=== PATIENT | male | born 1940 | race Caucasian/White ===

== ENCOUNTER 2019-06-23 10:30 | Day surgery (SDC) | payer MEDICARE, OTHER, SELFPAY ==
[2019-06-23 11:00] VITALS: BP 130/98; PULSE 92; RESP 18; TEMP 36.3; O2SAT 95
--- NOTE | 2019-06-23 11:23 | PM.HPUD ---
H&P update H&P Update: DATE OF SURGERY/PROCEDURE: 06/23/19 DATE H&P PERFORMED: 06/22/19 H&P UPDATE INFORMATION: H&P completed within last 30 days and No changes to prior documentation PLANNED PROCEDURE: Operation Date: 06/23/19 12:20 Proposed Procedures p Excision Mass/Lesion/Cyst Upper Torso/He Excision Mass,Lesion,Cyst Upper Torso/Head 87324 10052/ L72.3(Not Applicable) - Luiz Haley MD Full H&P Perinent History: Medical/Surgical History: Medical History (Updated 06/22/19 @ 14:31 by Luiz Haley MD) GERD (gastroesophageal reflux disease) (Acute) History of bladder stone (Acute) surgery for HTN (hypertension) (Acute) Family History: Family History (Updated 06/22/19 @ 13:14 by Ally Oconnor LPN) Denies family history of Diabetes Anesthesia complication Bleeding disorder Cancer Social History: Social History Smoking and tobacco status: never smoked Alcohol intake: never Household members: spouse Marital status: Current occupational status: retired
[2019-06-23] MEDS: sodium chloride 0.9% 1,000 ML 30 ML IV (11:36)
[2019-06-23] MEDS: vancomycin 1,000 MG in sodium chloride 0.9% 250 ML 250 MG IV (11:59)
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
[2019-06-23] MEDS: lidocaine 1% INJ 20 mL SUBCUT (12:51)
[2019-06-23] MEDS: neomycin-poly-bacitracin oint 28 gm 1 APPLIC TOPICAL (13:12)
--- NOTE | 2019-06-23 13:26 | P.OP_ITS ---
Operative Report Post-Operative Note: Date of procedure: 06/23/19 Preop Diagnosis: Mass on back and neck Post-op Findings: 1. Draining sebaceous cyst on the back 2. 2.5 x 2.5 cm sebaceous cyst on the back 3. 2.5 x 2.5 cm mass left posterior neck Procedure Done: 1. Excision of sebaceous cyst x2 on the back 2. Excision of mass on the left posterior neck Specimens removed/disposition: Sebaceous cyst x2 from back and subcutaneous mass from neck Surgeon: Luiz Haley Anesthesia: MAC Estimated blood loss (mL): 15 Condition: stable Disposition: PACU Operative Report: Procedure: The patient was in the operating room and placed in the right lateral position under MAC after IV antibiotic had been administered. The area around the palpable mass on the neck and upper back on the left side was prepped and draped in a sterile manner. 1% lidocaine with 0.5% Marcaine was infiltrated around the 3 palpable lesions. Using a 15 blade elliptical incision was made around the punctum on the sebaceous cyst of the back which measured 2.5 x 2.5 cm. The cyst was dissected free from the surrounding subcutaneous tissue using a 15 blade and specimen sent to pathology. Wound was irrigated saline and subcutaneous tissue approximated using interrupted 3-0 Vicryl suture and skin was closed using running subcuticular 4-0 Monocryl suture and Dermabond. Using a 15 blade 3 cm transverse incision was made on the palpable mass on the left posterior neck which measured 2.5 x 2.5 cm. The mass was dissected free from the surrounding subcutaneous tissue using a 15 blade and specimen sent to pathology. Wound was irrigated saline and subcutaneous tissue approximated using interrupted 3-0 Vicryl suture and skin was closed using running sub cuticular 4-0 Monocryl suture and Dermabond. Using 15 blade and elliptical incision was made around the chronic draining sinus on the back and sebaceous cyst was dissected free from the surrounding s ubcutaneous tissue using electrocautery. Wound was again with saline, hemostasis ensured and skin was approximated using vertical mattress 3-0 Prolene suture and covered with antibiotic cream and sterile dressings. The patient was transferred to recovery room in stable condition. Coding Level of Care Code Acute Lead Embedded Software Engineer for Yonathan Leon
[2019-06-23 13:45] VITALS: BP 107/66; PULSE 80; RESP 18; TEMP 36.6; O2SAT 96
--- NOTE | 2019-06-23 15:22 | ANE.PACU ---
 Inpatient post-anesthesia follow up: Airway intact: Yes Vital signs: Temperature 97.8 F Pulse Rate [Left R adial] 80 Respiratory Rate 18 Blood Pressure [Le ft Arm] 107/66 Pulse Oximetry 96 Oxygen Delivery Me thod Room Air Oxygen Flow Rate Fraction of Inspir ed Oxygen Hydration adequate: No Nausea and vomiting: No Mental status: Baseline
== END 2019-06-23 14:44 | disposition home or self-care (01) ==
PROVIDERS: Family Provider Family Medicine; PCP Family Medicine; Visit Provider Surgery
PROC: (CPT 11403; principal; 2019-06-23 12:10)
DX: L72.3 Sebaceous cyst (principal); D17.0 Benign lipomatous neoplasm of skin and subcutaneous tissue of head, face and neck; I10 Essential (primary) hypertension
CPT/HCPCS: 11403; 11423; 12041; 88304; 88307; J2001; J2250; J2370; J2704; J3010; J3370; J3490; J7030; J7050

== ENCOUNTER 2019-07-09 08:02 | Emergency (ER) | payer MEDICARE, OTHER, SELFPAY ==
[2019-07-09 08:13] VITALS: BP 146/93; PULSE 85; RESP 18; TEMP 36.8; O2SAT 93; BMI 27.7
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
--- NOTE | 2019-07-09 08:37 | PC.NURSE ---
Report received from Zeke Carcamo RN
--- NOTE | 2019-07-09 08:58 | ECG_ITS ---
Measurements Intervals [place] Rate: 83 P: 9 TX: 222 QRS: -23 QRSD: 133 T: 2 QT: 349 QTc: 411 SINUS RHYTHM WITH FIRST DEGREE AV BLOCK BORDERLINE LEFT AXIS DEVIATION [QRS AXIS < -20] INTRAVENTRICULAR CONDUCTION DELAY [130+ ms QRS DURATION] No previous ECG available for comparison Electronically Signed On 07-09-2019 15:33:57 RENTAL COUNTER CLERK by Jenn Ayon M.D. [email or web address]
--- NOTE | 2019-07-09 08:58 | XR_ITS ---
WS: [id number] PORTABLE CHEST HISTORY: dyspnea COMPARISON: 06/18/2018 Slight elevation of the RIGHT hemidiaphragm is unchanged. Increasing scattered opacifications in the mid and lower LEFT lung. RIGHT lung remains clear. No pleural effusion or pneumothorax. Cardiac size: Mildly enlarged cardiac silhouette. Mediastinum/Aorta: Mild atherosclerosis aorta. Resection of the distal clavicles. XR/XR chest 1V portable [id number] IMPRESSION: New opacifications and interstitial thickening in the mid and lower LEFT lung f rom early pneumonitis.
[2019-07-09 09:11] VITALS: BP 112/80; PULSE 82; RESP 18; O2SAT 93
[2019-07-09] MEDS: sodium chloride 0.9% 1,000 ML 999 ML IV (09:13)
[2019-07-09 09:16] LABS: Basophils % 0.1 %; Eosinophils # 0.3 10^3/uL (0.0-0.8); Eosinophils % 3.9 %; Hematocrit 42.9 % (42.0-52.0); Hemoglobin 14.6 g/dL (11.7-16.6); Lymphocytes # 2.2 10^3/uL (0.8-4.8); Lymphocytes % 30.9 %; Mean Corpuscular Hemoglobin 28.8 pg (28.0-34.0); Mean Corpuscular Volume 84.6 fL (80-94); Mean Platelet Volume 9.8 fL (7.4-10.4); Monocytes # 0.6 10^3/uL (0.2-0.9); Monocytes % 8.3 %; Neutrophils # 4.1 10^3/uL (1.8-7.7); Neutrophils % 56.5 %; Nucleated Red Blood Cells % 0 %; Platelet Count 211 10^3/cmm (130-400); Red Blood Count 5.07 10^6/uL (4.1-5.3); Red Cell Distribution Width 14.1 % (12.1-15.1); White Blood Count 7.3 10^3/uL (4.0-10.0)
[2019-07-09 09:31] LABS: Alanine Aminotransferase 27 U/L (0-41); Albumin Level 4.6 g/dL (3.5-5.2); Alkaline Phosphatase 50 IU/L (40-130); Anion Gap 15.1 (5-19); Aspartate Amino Transferase 24 U/L (0-40); Blood Urea Nitrogen 19 mg/dL (8-23); Calcium 9.9 mg/dL (8.5-10.5); Carbon Dioxide 28 mmol/L (22-29); Chloride 99 mmol/L (98-107); Creatinine Clr Calc Pharmacy 95.6018; Glucose 118 mg/dL (74-106); Potassium 4.1 mmol/L (3.5-5.1); Sodium 138 mmol/L (136-145); Total Protein 6.6 g/dL (6.6-8.7)
[2019-07-09 09:33] LABS: Troponin(5th) Baseline 34 ng/mL (0-15)
[2019-07-09 09:34] VITALS: BP 132/85; PULSE 76; RESP 18; O2SAT 94
--- NOTE | 2019-07-09 09:34 | PC.NURSE ---
Xray at bedside
--- NOTE | 2019-07-09 09:41 | PC.NURSE ---
Pt ambulated to BR to give urine sample.
[2019-07-09 10:35] VITALS: BP 106/79; PULSE 78; RESP 17; O2SAT 92
[2019-07-09] MEDS: levoFLOXacin 750 mg Tablet PO (10:36)
[2019-07-09 11:31] LABS: Troponin 5 2HR 30.31 ng/mL (0-15)
[2019-07-09 11:38] LABS: Troponin 5 2HR Delta -3.69 ABS# (0-10)
[2019-07-09 11:45] VITALS: BP 100/80; PULSE 85; RESP 17; O2SAT 91
[2019-07-09 11:54] VITALS: BP 100/80; PULSE 94; RESP 15; O2SAT 92
--- NOTE | 2019-07-09 14:58 | ECG_ITS ---
Measurements Intervals [place] Rate: 80 P: 0 OK: 223 QRS: -17 QRSD: 112 T: 8 QT: 369 QTc: 426 SINUS RHYTHM WITH FIRST DEGREE AV BLOCK INCOMPLETE RIGHT BUNDLE BRANCH BLOCK [90+ ms QRS DURATION, TERMINAL R IN V1/V2, 40+ ms S IN I/aVL/V4/V5/V6] No previous ECG available for comparison Electronically Signed On 07-09-2019 15:37:44 RN ICU by Jenn Ayon M.D. [email or web address]
--- NOTE | 2019-07-09 15:57 | DCPLANNER ---
distribution operations manager was asked to schedule an echo cardiogram for patient. distribution operations manager faxed order to centralized scheduling will call for appointment information.
--- NOTE | 2019-07-14 14:30 | DCPLANNER ---
Patient has an echo scheduled for 07.26.19 at 8:45. Centralized scheduling will call patient with appointment information.
--- NOTE | 2019-08-17 14:24 | DCPLANNER ---
Patient did attend appointment scheduled for 07.26.19 for an echo.
== END 2019-07-09 12:04 | disposition home or self-care (01) ==
PROVIDERS: Emergency Provider Family Medicine; Family Provider Family Medicine; PCP Family Medicine
DX: R07.89 Other chest pain (principal); I35.0 Nonrheumatic aortic (valve) stenosis; J18.9 Pneumonia, unspecified organism; Z79.82 Long term (current) use of aspirin; I10 Essential (primary) hypertension; K21.9 Gastro-esophageal reflux disease without esophagitis
CPT/HCPCS: 36415; 71045; 80053; 84484; 85025; 93005; 96360; 99283; J7030

== ENCOUNTER 2019-07-26 08:34 | Outpatient (CLI) | payer MEDICARE, OTHER, SELFPAY ==
--- NOTE | 2019-07-26 08:43 | USCV_ITS ---
Tomer Donaldson Age: 79 Gender: M : 1940 Exam Date: 07/26/2019 08:59 Ordering Phys: Pablito Correa MD Technologist: Eda Hernandez Exam Location: [facility] – [place] Indication: CHANGE IN MURMUR BP: 129 / 80 HR: 77 Rhythm: Sinus Technical Quality: Adequate MEASUREMENTS (Male / Female) Normal Values 2D ECHO LV Diastolic Diameter PLAX 4.3 cm 4.2 - 5.9 / 3.9 - 5.3 cm LV Systolic Diameter PLAX 2.4 cm LV Chamber Size 3.7 cm IVS Diastolic Thickness 1.6 cm 0.6 - 1.0 / 0.6 - 0.9 cm IVS Systolic Thickness 2.4 cm LVPW Diastolic Thickness 1.6 cm 0.6 - 1.0 / 0.6 - 0.9 cm LVPW Systolic Thickness 2.0 cm RV Chamber Size 2.7 cm LVOT Diameter 2.1 cm LV Ejection Fraction 2D Teich 76.4 % LV Ejection Fraction MOD 2C 73.6 % LV Ejection Fraction 2C AL 74.4 % LA Diameter 4.0 cm LA Width 3.3 cm LA Height 3.4 cm RA Width 3.5 cm RA Height 3.4 cm Aorta at Sinotubular Diameter 3.4 cm M-MODE LV Diastolic Diameter MM 5.2 cm 4.2 - 5.9 / 3.9 - 5.3 cm LV Systolic Diameter MM 2.8 cm LV Ejection Fraction MM Teich 76.6 % IVS Diastolic Thickness MM 1.2 cm 0.6 - 1.0 / 0.6 - 0.9 cm IVS Systolic Thickness MM 1.7 cm LVPW Diastolic Thickness MM 1.2 cm 0.6 - 1.0 / 0.6 - 0.9 cm LVPW Systolic Thickness MM 2.4 cm RV Diastolic Diameter MM 1.9 cm Aortic Annulus Diameter 3.7 cm LA Ao Ratio MM 1.1 MV E Point Septal Separation 0.6 cm DOPPLER AV Peak Velocity 353.0 cm/s LVOT Peak Velocity 94.0 cm/s AV Area Cont Eq vti 0.7 cm squared AV Area Cont Eq pk 0.9 cm squared MV Peak Velocity 108.0 cm/s MV Area PHT 5.6 cm squared Mitral E to A Ratio 0.7 MV E' Velocity 7.0 cm/s Mitral E to MV E' Ratio 10.8 Mitral E to LV E' Lateral Ratio 9.9 Mitral E to LV E' Septal Ratio 11.8 TR Peak Velocity 253.7 cm/s TR Peak Gradient 25.8 mmHg TR Mean Velocity 197.5 cm/s TR Mean Gradient 16.6 mmHg TR Velocity Time Integral 67.5 cm TV Peak E Velocity 54.0 cm/s PV Peak Velocity 57.0 cm/s RV Acceleration Time 0.1 s RV Ejection Time 0.3 s RV AcT/ET 0.3 FINDINGS Left Ventricle Moderate left ventricular hypertrophy. Normal left ventricular size and systolic function, EF 65 %. No regional wall motion abnormalities. Grade I/IV diastolic dysfunction (abnormal relaxation filling pattern), normal to mildly elevated filling pressures. Right Ventricle Normal right ventricular size and systolic function. Right Atrium Normal right atrial size. Left Atrium Mildly increased left atrial size. Mitral Valve Moderate-severe mitral valve regurgitation. Eccentric jet, directed anteriorly. Moderate prolapse of the posterior mitral leaflet Aortic Valve Moderate aortic valve calcification. Gdoh-ha-xmqoanka aortic valve regurgitation. Severe aortic valve stenosis, mean gradient 19.4 mmHg, DEVEN 0.75 cm squared. Peak velocity of 3.53 m/s with a peak gradient of 15 mmHg Tricuspid Valve Morphology could not be delineated well.mild tricuspid valve regurgitation. Pulmonic Valve Thickened pulmonic valve. Mild pulmonary valve regurgitation. Estimated pulmonary artery peak systolic pressure 26 mmHg Pericardium No pericardial effusion. Aorta Normal aortic annulus size. CONCLUSIONS 1. Possibly severe low gradient aortic valve stenosis. 2. Moderately severe eccentric mitral regurgitation with moderate prolapse of the posterior mitral leaflet 3. Mild to moderate aortic regurgitation 4. Moderate concentric left ventricular hypertrophy with normal ejection fraction of 65%. 5. Features of grade 1 left ventricular diastolic dysfunction 6. Estimated pulmonary artery peak systolic pressure of 26 mmHg Technically somewhat difficult study Consider ELIZABETH to better evaluate the aortic and mitral valves, if clinically indicated. Comparison with the previous study is difficult because of the difference in the technical quality. Dr Jenn Ayon MD FACC (Electronically Signed) Final Date: 26 July 2019 20:52 S
== END 2019-07-26 08:35 | disposition home or self-care (01) ==
LOC: RAD 08:41
PROVIDERS: Family Provider Family Medicine; PCP Family Medicine; Visit Provider Family Medicine
DX: R01.1 Cardiac murmur, unspecified (principal); I34.0 Nonrheumatic mitral (valve) insufficiency; I35.1 Nonrheumatic aortic (valve) insufficiency; I51.7 Cardiomegaly
CPT/HCPCS: 93306

== ENCOUNTER → 2019-07-28 08:01 | Outpatient (BNVA) | payer MEDICARE, OTHER, SELFPAY | PROVIDERS: Family Provider Family Medicine; PCP Family Medicine; Visit Provider Urology | DX: R33.9 Retention of urine, unspecified (principal); E29.1 Testicular hypofunction; N30.20 Other chronic cystitis without hematuria; N40.1 Benign prostatic hyperplasia with lower urinary tract symptoms; N20.0 Calculus of kidney | CPT/HCPCS: 81001; 87077; 87086; 87186 ==

== ENCOUNTER 2019-08-24 10:43 | Day surgery (SDC) | payer MEDICARE, OTHER, SELFPAY ==
[2019-08-24 11:21] VITALS: BP 114/78; PULSE 84; RESP 18; TEMP 36.8; O2SAT 96; BMI 28.2
--- NOTE | 2019-08-24 11:35 | ANES.PREANE2 ---
Pre-Anesthetic Assessment Pre-Anesthetic Assessment: Height/Weight: Height 1.85 m Weight 97.069 kg Temp Pulse Resp BP Pulse Ox 98.3 F 84 18 114/78 96 08/24/19 11:21 08/24/19 11:21 08/24/19 11:21 08/24/19 11:21 08/24/19 11:21 Preop Diagnosis: Mass on back and neck Proposed Procedure: Operation Date: 08/24/19 12:00 Proposed Procedures p ELIZABETH (Transesophageal Echocardiogram)(Not Applicable) - Latanya Jones MD Familial anesthetic complications: PONV Was Beta Jewel taken within 24 hours: N/A Last intake: NPO > 8 hrs (sips with meds - lorene c, methenamine, omperazole) Social: Social History: No alcohol and No tobacco Exam: Pre-Anes Outpt Exam: alert, oriented x 3, clear to auscultation bilaterally and regular rate & rhythm Airway: Cervical ROM: WNL MP: 2 Dentition: Chipped Additional comments: smiley Pulmonary: Pulmonary: SOB Comments: Hx of pneumothoraces due to nitrofurantion CV/HEM: CV/HEM: Angina (Stable), HTN and Murmur Comments: aortic stenosis (severe), mitral regurge (mod - severe) was able to walk 0.5 mile 3 months ago, now will become short of breath with 2 flights : : None reported Hepatic: Hepatic: None reported GI: GI: GERD Metabolic: Metabolic: None reported Musc/skel: Musc/skel: None reported Neuropsych: Neuropsych: None reported Anesthetic Plan: ASA status: 3 Anesthesia: MAC Risk of > 500 ml blood loss (7ml/kg in children): No PFSH Anesthesia PFSH: Social History Smoking and tobacco status: never smoked Alcohol intake: never Household members: spouse Marital status: Current occupational status: retired History of recent travel: No Data Anesthesia Cardiac Studies: No Data to Display
--- NOTE | 2019-08-24 12:00 | USCV_ITS ---
Tomer Donaldson Age: 79 Gender: M : 1940 Exam Date: 08/24/2019 12:12 Ordering Phys: Latanya Jones MD ([email or web address]) Technologist: Sharan Arenas Exam Location: [facility] [place] Indication: MVP BP: / HR: Rhythm: Sinus Technical Quality: Good MEASUREMENTS (Male / Female) Normal Values Medications Patient given IV sedation by anesthesia service, for details please refer to the anesthesia report. Complications None Proc. Components Images obtained at mid esophageal and transgastric levels. FINDINGS Left Ventricle Normal left ventricular cavity size. Moderate concentric left ventricular hypertrophy. Normal left ventricular systolic function. Left ventricular ejection fraction is estimated at 65 %. No regional wall motion abnormalities. Right Ventricle Normal right ventricular size and systolic function. Right Atrium Normal right atrial size. Left Atrium Mildly increased left atrial size. LA Appendage Normal left atrial appendage. Normal flow velocities in the left atrial appendage. No thrombus visualized in the left atrial appendage. IA Septum Normal interatrial septum. No patent foramen ovale or an atrial septal defect based on color doppler or agitated saline (bubble) study. Mitral Valve Thickened and myxomatus mitral valve. 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 Moderate prolapse of P1 and P2 (P2>P1) scallops of posterior mitral valve leafleft. Moderate to severe eccentric anteriorly directed mitral valve regurgitation (ERO 48 mm2, RVol 57 ml). This may be underestimated given coanda effect. Aortic Valve Severely thickened and calcified trileaflet aortic valve. Moderate to severe aortic valve stenosis, peak velcity of 3.3 m/sec, peak gradient 42 mm Hg, mean gradient 19 mmHg, DEVEN 1.2 cm squared (LVOT-2.2 cm). Dimensionless valve index of 0.25. Stroke volume index of 30 ml/m2. Itse-cl-ogyxrhfm eccentric aortic valve regurgitation. Tricuspid Valve Structurally normal tricuspid valve. No tricuspid valve stenosis. Yzay-ru-niiwjiiq tricuspid valve regurgitation. Pulmonic Valve Structurally normal pulmonic valve. No pulmonary valve stenosis. Trace pulmonary valve regurgitation. Pericardium No pericardial effusion. Aorta Normal size aortic root and proximal ascending aorta. No aortic dilation, aneurysm or dissection. Grade 3 atheroma noted in proximal descending aorta and aortic arch. CONCLUSIONS 1. Normal left ventricular cavity size and systolic function. Moderate concentric left ventricular hypertrophy. Left ventricular ejection fraction is estimated at 65 %. No regional wall motion abnormalities. 2. Mildly increased left atrial size. 3. Moderate prolapse of P1 and P2 (P2>P1) scallops of posterior mitral valve leafleft. Moderate to severe eccentric anteriorly directed mitral valve regurgitation. 4. Moderate to severe aortic valve stenosis, peak velcity of 3.3 m/sec, peak gradient 42 mm Hg, mean gradient 19 mmHg, DEVEN 1.2 cm squared. Dimensionless valve index of 0.25. Synh-if-ofnluccs eccentric aortic valve regurgitation. 5. Iagw-ti-xpethzfg tricuspid valve regurgitation. 6. Grade 3 atheroma noted in proximal descending aorta and aortic arch. Latanya Jones MD (Electronically Signed) Final Date: 25 August 2019 20:38 S
[2019-08-24 13:00] VITALS: BP 114/81; PULSE 77; RESP 16; O2SAT 98
[2019-08-24 13:15] VITALS: BP 116/88; PULSE 77; RESP 18; TEMP 36.9; O2SAT 95
[2019-08-24 13:29] VITALS: BP 124/78; PULSE 74; RESP 18; O2SAT 96
== END 2019-08-24 14:05 | disposition home or self-care (01) ==
PROVIDERS: Family Provider Family Medicine; PCP Family Medicine; Visit Provider Internal Medicine Cardiovascular Disease
DX: N13.8 Other obstructive and reflux uropathy (principal); I07.1 Rheumatic tricuspid insufficiency; I10 Essential (primary) hypertension; I35.0 Nonrheumatic aortic (valve) stenosis; I34.0 Nonrheumatic mitral (valve) insufficiency; K21.9 Gastro-esophageal reflux disease without esophagitis; N40.1 Benign prostatic hyperplasia with lower urinary tract symptoms
CPT/HCPCS: 93312; 93320; 93325; J2001; J2704; J7030

== ENCOUNTER 2019-09-09 08:00 | Day surgery (SDC) | payer MEDICARE, OTHER, SELFPAY | END 2019-09-09 09:00 | disposition home or self-care (01) | LOC: CCL 02-01 14:13 | PROVIDERS: PCP Family Medicine; Visit Provider Internal Medicine Cardiovascular Disease | DX: I08.0 Rheumatic disorders of both mitral and aortic valves (principal) ==

== ENCOUNTER 2019-09-09 10:59 | Observation (INO) | payer MEDICARE, OTHER, SELFPAY ==
[2019-09-09] VITALS (26 sets, daily range): BP systolic 115–151; BP diastolic 74–99; PULSE 75–100; RESP 13–24; TEMP 36.7–36.8; O2SAT 91–100; BMI 28.2
--- NOTE | 2019-09-09 07:15 | XACV_ITS ---
Ht: 185 cm Wt: 97 kg BSA: 2.25 m2 Gender: Male : 1940 Any Known Allergies: Penicillins Exam Priority: Routine Procedure(s): Procedure Description: Diagnostic procedure Procedure Description: PCI procedure Procedure Description: Left Heart Catheterization Procedure Description: Right Heart Catheterization Procedure Description: Left ventriculography Procedure Description: Cardiac Output Procedure Description: O2 saturation Procedure Description: Drug Eluting Coronary Stent Procedure Description: PTCA Diagnostic Cath Status: Elective Diagnostic Findings LM has 0% stenosis. CX has 0% stenosis. RCA has 0% stenosis. Proximal Left Anterior Descending Coronary Artery: Severe 95% stenosis, JEFFRY: 2 flow. Distal Left Anterior Descending Coronary Artery: Severe 90% stenosis, JEFFRY: 2 flow. Coronary angiography shows left dominance. Interventional Findings Proximal Left Anterior Descending Coronary Artery: 95% stenosis treated with MDT R VANDA 4.0X12 SUSAN and MDT NC EUPHORA RX [id number] BALLOON. 0% residual stenosis, JEFFRY: 3 flow. Distal Left Anterior Descending Coronary Artery: 90% stenosis treated with AB MINI TREK 2.00X25 RX BALLOON and ARUNA [place] VANDA 2.5X12 SUSAN. 0% residual stenosis, JEFFRY: 3 flow. Conclusions There is severe coronary artery disease with one vessel disease. The anterobasal and anterolateral nino are hypokinetic. All other visualized nino normal. Normal left ventricular systolic function. Ejection fraction of 65%. Proximal Left Anterior Descending Coronary Artery was treated with Drug Eluting Stent and Balloon. Distal Left Anterior Descending Coronary Artery was treated with Balloon and Drug Eluting Stent. Underwent left heart catheterization for worsening of shortness of breath and for moderate aortic and mitral valve insufficiency. As shortness of breath was unusual than the aortic and mitral valve pathology patient was referred for left heart catheterization. Patient was found to have tight proximal and distal LAD lesion since patient is not going for a major surgery and would like to hold on it for a few months it was treated with drug-eluting stents. Recommendations 1-Return to inpatient for close monitoring and routine cath care2-Risk factor modification for secondary prevention3-Statin and aspirin 81 mg life-long, if tolerated4-Continue Plavix 75mg p.o. daily for at least one year. We will assess at the end of one year again to continue if further or not5-Continue optimal medical management6-Follow up with Dr. Jones in four weeks and your primary care in 10 days. Diagnostic RX Recommendation: PCI w/o planned CABG Ventriculography Ejection Fraction: 65.0 % Pressures Phase:Rest AO : 96 mmHg / 61 mmHg ( 72 mmHg ) @ 4:50:00 AM 109 mmHg / 21 mmHg ( 52 mmHg ) @ 5:13:00 AM 88 mmHg / 53 mmHg ( 71 mmHg ) @ 5:13:00 AM LV : 159 mmHg / -11 mmHg / @ 5:11:00 AM 166 mmHg / -5 mmHg / @ 5:11:00 AM 146 mmHg / -30 mmHg / @ 5:13:00 AM RV : 28 mmHg / -2 mmHg / @ 4:38:00 AM PA : 31 mmHg / 15 mmHg ( 20 mmHg ) @ 4:34:00 AM RA : a wave = v wave = mean = 4 mmHg @ 4:40:00 AM O2 Content Phase:Rest PA : O2 Content O2: 71.8 % @ 4:50:00 AM Saturations Phase:Rest AO : 90 % @ 5:11:00 AM RA : 73 % @ 5:13:00 AM RV : 72 % @ 5:13:00 AM PA : 72 % @ 4:50:00 AM Cardiac Output Phase:Rest Latoya : 7 l/min @ 4:50:00 AM Latoya Cardiac Index: 3 L/min/m2 @ 4:50:00 AM Clinical Evaluation EBL: 5mL-10mL Procedural Details Procedure Consent Obtained. Admit Source: Out Patient. Pre-Procedure Time Out. Identified patient by full name and date of as verbalized by the patient/guarantor. Does the consent match the physician's order: Yes. Accurate & Complete Informed Consent: Yes. Inpatient/Outpatient History & Physical on Chart: Yes. If H&P is completed, is and addenduem needed: N/A; If yes, is the addendum complete: N/A. Visualize and Verify Site with Patient/Guarantor: N/A. Relevant Radiology Images available: N/A. Pre-op teaching completed and patient verbalized understanding. The risks, benefits, and alternatives of sedation and/or procedure were discussed by physician. The patient agrees to continue. Procedure started. Correct patient, site and procedure confirmed by cath team. PERRLA. Strong, equal hand headhunter bilaterally. Lungs clear x 5 lobes. IV Site on Arrival: 20 gauge in the left wrist. Pre Procedural Pulses: bilateral dorsalis pedis was 3+. Pre Procedural Pulses: bilateral posterior tibial was 3+. Pre Procedural Pulses: bilateral radial was 3+. Oxygen started at 2liters/min via nasal canula. bilateral groins was prepped with chloroprep then draped in the usual sterile fashion. right radial was prepped with chloroprep then draped in the usual sterile fashion. Physician notified. Baseline sample Acquired. HR: 105 BPM. Physician arrived. Physician scrubbed in. Immediate Pre-Procedure Time Out. Correct Patient: Yes; Correct Procedure: Yes; Correct Site: Yes; Correct Patient Position: Yes; Correct Supplies: Yes; Dried Flammable Prep: Yes; Blood Products Available: N/A;. wire going throught the brachial access guide. Lidocaine 1% infiltrated to the right brachial. right brachial was prepped with chloroprep then draped in the usual sterile fashion. IV wire coming out. Arterial access obtained. [place] MON catheter inserted. Baseline sample Acquired. HR: 84 BPM. oxygen is off patient at this time. Oximetry samples were obtained. Normal venous range: 60-85%. Normal arterial range: 95-100%. Pressure measurements obtained. [place] out. Lidocaine 1% infiltrated to the right radial. A 5 german TIG catheter in over wire. 2LPM NC placed back on patient. Catheter out. Family called and updated. A 5 german Deacon catheter in over wire. Multiple views taken of left coronary artery. Catheter redirected to the RCA. Dr. Jones notified per Dr. Romo. Dr. Jones arrived and consulted with Dr. Romo at this time. Inventory is [place] XT .014 190cm Str. Guidewire. A 5 german Angled Pig catheter in over wire. EDP Sample taken: LV 159/-12,5; HR: 104 BPM; SpO2: 98%. LV gram performed in LIRA @ 10 mL/second for a total of 30 mL. EDP Sample taken: LV 146/-31,-10; HR: 102 BPM; SpO2: 98%. Pullback taken: LV Off; AO Off; Mean: , Peak to Peak: , SEP: ; HR: 109 BPM; SpO2: 98%. 6 german XB 3.5 guide catheter was inserted over the wire. [employer] guidewire was advanced through the guide catheter to lesion in the distal LAD. Inflation number : 1 A AB MINI TREK 2.00X25 RX BALLOON was prepped and advanced across the Dist LAD , then inflated to 14 AUDI for 0:09 seconds. Balloon out. Inflation Number : 2 A MDT R VANDA 2.5X12 SUSAN -Lot Number# [id number] exp:05-18-2021 was prepped and advanced across the Dist LAD. The stent was deployed at 20 AUDI for 0:22 seconds. Stent balloon out over wire. Results checked. Inflation Number : 1 A MDT R VANDA 4.0X12 SUSAN -Lot Number# [id number] exp: 05-14-2021 was prepped and advanced across the Prox LAD. The stent was deployed at 18 AUDI for 0:16 seconds. Inflation number : 2 A MDT NC EUPHORA RX [id number] BALLOON was prepped and advanced across the Prox LAD , then inflated to 14 AUDI for 0:21 seconds. Inflation number: 3 The MDT NC EUPHORA RX 4.18M29PE BALLOON was reinflated across the Prox LAD, to 12 AUDI for 0:13 seconds. Inflation number: 4 The MDT NC EUPHORA RX 4.28P93QM BALLOON was reinflated across the Prox LAD, to 14 AUDI for 0:11 seconds. ACT drawn. Results 207 seconds. Therapeutic limits - pre-heparin administration 90-150 seconds and monitoring heparin during a vascular procedure >250 seconds. checking results. Wire out. TR band placed. Hemostasis obtained. Brachial Sheath(s) sutured into position with 2-0 silk and sterile 4x4's and Op-site applied over the site. No oozing or signs and symptoms of hematoma noted. Post Procedure: Pulses reassessed and unchanged. PERRLA. Strong, equal hand headhunter bilaterally. No VTE prophylaxis required. A Suture was successful obtaining hemostatsis at the Right Brachial artery insertion site. A TR Band was successful obtaining hemostatsis at the Right Radial artery insertion site. Contrast type used: Omnipaque 300 mgI/mL, 500 mL bottle. Contrast Material : Omnipaque 357 ml. Complications: NONE. Estimated blood loss: 5mL-10mL. Medication's Wasted: Lidocaine 1% = 17 mg. Medication's Wasted: Nitro = 49.6 mg. Medication's Wasted: Other = Fentynol 50 mg. Total IV fluids: 117 mL. Post-op diagnosis: sigle vessel CAD. [facility] Clinical Fraility Score: 4: Vulnerable. 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 Chest Pain Symptom Assessment: Typical Angina Symptoms/valvular disease. Cardiovascular Instability: No,. PCI Indication: New Onset Angina. Procedure completed. Patient transferred by wheelchair to 1st floor. Vital chart was stopped. Site: Right Brachial artery Sheath Size: 6 Fr Hemostasis Method: Suture Hemostasis Success: Successful Site: Right Radial artery Sheath Size: 6 Fr Hemostasis Method: TR Band Hemostasis Success: Successful Procedure Medications Start: 9:27 AM Stop: 9:27 AM Medication: Versed Amount: 1 mg Route: I.V. Start: 9:46 AM Stop: 9:46 AM Medication: Versed Amount: 1 mg Route: I.V. Start: 9:46 AM Stop: 9:46 AM Medication: Fentanyl Amount: 50 mcg Route: I.V. Start: 9:46 AM Stop: 9:46 AM Medication: Fentanyl Amount: 50 mcg Route: I.V. Start: 9:48 AM Stop: 9:48 AM Medication: Nitrogylcerin Amount: 200 mcg Route: I.A. Start: 9:51 AM Stop: 9:51 AM Medication: Heparin Amount: 5000 units Route: I.V. Start: 10:15 AM Stop: 10:15 AM Medication: Heparin Amount: 5000 units Route: I.V. Start: 10:21 AM Stop: 10:21 AM Medication: Aggrastat 12.5 mg/250 mL Amount: 49 ml Route: I.V. bolus Start: 10:21 AM Stop: 10:21 AM Medication: Versed Amount: 1 mg Route: I.V. Start: 10:26 AM Stop: 10:26 AM Medication: Aggrastat 12.5 mg/250 mL Amount: 17.6 ml/hr Route: I.V. drip Start: 10:31 AM Stop: 10:31 AM Medication: Versed Amount: 1 mg Route: I.V. Start: 10:39 AM Stop: 10:39 AM Medication: Versed Amount: 1 mg Route: I.V. Start: 10:39 AM Stop: 10:39 AM Medication: Fentanyl Amount: 50 mcg Route: I.V. Start: 10:42 AM Stop: 10:42 AM Medication: Nitrogylcerin Amount: 200 mcg Route: I.C. Start: 10:43 AM Stop: 10:43 AM Medication: Heparin Amount: 2000 units Route: I.V. Start: 10:51 AM Stop: 10:51 AM Medication: Plavix Amount: 600 mg Route: P.O. I, the attending physician, have reviewed and verified all procedure medications. Yes, all medications given per verbal order History/Risk Factors Hypertension: Yes Dyslipidemia: No Peripheral Arterial Disease (PAD): No Myocardial Infarction (HI): No Obesity: No Renal Disease: No Tobacco Use: Never Prior Interventions PCI: No CABG: No Valve Surgery: No Report Signatures Finalized by:Tia Romo MD on 09/19/2019 8:58:30 PM
[2019-09-09] MEDS: diphenhydrAMINE 50 mg Capsule PO (08:21)
[2019-09-09 08:25] LABS: Basophils % 0.2 %; Eosinophils # 0.7 10^3/uL (0.0-0.8); Eosinophils % 7.8 %; Hematocrit 47.7 % (42.0-52.0); Lymphocytes % 35.9 %; Mean Corpuscular HGB Conc 33.5 g/dL (30.0-36.0); Mean Corpuscular Volume 89.5 fL (80-94); Mean Platelet Volume 9.9 fL (7.4-10.4); Monocytes # 0.8 10^3/uL (0.2-0.9); Monocytes % 9.5 %; Neutrophils # 3.9 10^3/uL (1.8-7.7); Neutrophils % 46.1 %; Nucleated Red Blood Cells % 0 %; Platelet Count 240 10^3/cmm (130-400); Red Blood Count 5.33 10^6/uL (4.1-5.3); Red Cell Distribution Width 14.2 % (12.1-15.1); White Blood Count 8.5 10^3/uL (4.0-10.0)
[2019-09-09 08:33] LABS: Blood Urea Nitrogen 15 mg/dL (8-23); Calcium 9.8 mg/dL (8.5-10.5); Carbon Dioxide 28 mmol/L (22-29); Chloride 101 mmol/L (98-107); Glucose 127 mg/dL (65-115); Osmolality Calculated 290 mOsm/kg (285-295); Sodium 141 mmol/L (136-145)
--- NOTE | 2019-09-09 08:35 | SUR.PREOP ---
Patient ready to go to cath. notified. 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 Awaiting his arrival before going to lab.
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
--- NOTE | 2019-09-09 19:08 | PC.NURSE ---
patients family here at 19:05, transport picking him up, iv and education completed prior to shift change. patient wheeled to exit via wheelchair to go home with family in their personal vehicle.
== END 2019-09-09 19:10 | disposition home or self-care (01) ==
LOC: CSU 11:00
PROVIDERS: Admitting Provider Internal Medicine Cardiovascular Disease; Family Provider Family Medicine; PCP Family Medicine; Visit Provider Internal Medicine Cardiovascular Disease
DX: I20.0 Unstable angina (principal); I35.0 Nonrheumatic aortic (valve) stenosis; I34.0 Nonrheumatic mitral (valve) insufficiency; N40.1 Benign prostatic hyperplasia with lower urinary tract symptoms; N13.8 Other obstructive and reflux uropathy; K21.9 Gastro-esophageal reflux disease without esophagitis; I10 Essential (primary) hypertension; Z82.49 Family history of ischemic heart disease and other diseases of the circulatory system
CPT/HCPCS: 12345; 36415; 80048; 85025; 85347; 93453; C1725; C1751; C1769; C1874; C1887; C1894; C9600; G0378; J1644; J2001; J2250; J3010; J3246; J3490; J7030; Q0163; Q9967

== ENCOUNTER → 2019-09-16 11:17 | Outpatient (BNVA) | payer MEDICARE, OTHER, SELFPAY | PROVIDERS: Family Provider Family Medicine; PCP Family Medicine; Visit Provider Nurse Practitioner Family | DX: I25.10 Atherosclerotic heart disease of native coronary artery without angina pectoris (principal); I34.0 Nonrheumatic mitral (valve) insufficiency; I25.110 Atherosclerotic heart disease of native coronary artery with unstable angina pectoris | CPT/HCPCS: 80048 ==

== ENCOUNTER → 2020-04-13 11:38 | Outpatient (BNVA) | payer MEDICARE, OTHER, SELFPAY | PROVIDERS: Family Provider Family Medicine; PCP Family Medicine; Visit Provider Internal Medicine | DX: N17.0 Acute kidney failure with tubular necrosis (principal); Z79.899 Other long term (current) drug therapy | CPT/HCPCS: 80053; 80069; 81003; 82570; 84156; 85025; 87077; 87086; 87184 ==

== ENCOUNTER → 2020-05-24 10:28 | Outpatient (BNVA) | payer MEDICARE, OTHER, SELFPAY | PROVIDERS: Family Provider Family Medicine; PCP Family Medicine; Visit Provider Urology | DX: R33.9 Retention of urine, unspecified (principal); N30.20 Other chronic cystitis without hematuria; N39.0 Urinary tract infection, site not specified; E29.1 Testicular hypofunction | CPT/HCPCS: 81003; 87077; 87086; 87184 ==

== ENCOUNTER → 2020-09-20 10:27 | Outpatient (BNVA) | payer MEDICARE, OTHER, SELFPAY | PROVIDERS: Family Provider Family Medicine; PCP Family Medicine; Visit Provider Internal Medicine | DX: N17.9 Acute kidney failure, unspecified (principal) | CPT/HCPCS: 80069; 81003; 82043; 85025; 87077; 87086; 87184 ==

== ENCOUNTER → 2020-10-03 13:41 | Outpatient (BNVA) | payer MEDICARE, OTHER, SELFPAY | PROVIDERS: Family Provider Family Medicine; PCP Family Medicine; Visit Provider Urology | DX: N30.20 Other chronic cystitis without hematuria (principal) | CPT/HCPCS: 87077; 87086; 87184 ==

== ENCOUNTER → 2020-10-23 08:51 | Outpatient (BNVA) | payer MEDICARE, OTHER, SELFPAY | PROVIDERS: Family Provider Family Medicine; PCP Family Medicine; Visit Provider Urology | DX: R79.89 Other specified abnormal findings of blood chemistry (principal); N13.8 Other obstructive and reflux uropathy; N40.1 Benign prostatic hyperplasia with lower urinary tract symptoms; N30.20 Other chronic cystitis without hematuria; R33.9 Retention of urine, unspecified; E29.1 Testicular hypofunction | CPT/HCPCS: 81003; 84403 ==

== ENCOUNTER → 2020-12-06 08:42 | Outpatient (BNVA) | payer MEDICARE, OTHER, SELFPAY | PROVIDERS: Family Provider Family Medicine; PCP Family Medicine; Visit Provider Urology | DX: R33.9 Retention of urine, unspecified (principal); Q55.0 Absence and aplasia of testis; N30.20 Other chronic cystitis without hematuria | CPT/HCPCS: 81003 ==

== ENCOUNTER 2021-03-23 08:39 | Outpatient (CLI) | payer MEDICARE, OTHER, SELFPAY ==
--- NOTE | 2021-03-23 08:45 | USCV_ITS ---
Tomer Donaldson Age: 80 Gender: M : 1940 Exam Date: 03/23/2021 08:57 Ordering Phys: Latanya Jones MD ([email or web address]) Technologist: JOSE G Exam Location: [facility] [place] Indication: s/p AVR, CAD BP: 130 / 90 HR: 66 Rhythm: Sinus Technical Quality: Adequate MEASUREMENTS (Male / Female) Normal Values 2D ECHO LV Diastolic Diameter PLAX 4.1 cm 4.2 - 5.9 / 3.9 - 5.3 cm LV Systolic Diameter PLAX 2.2 cm IVS Diastolic Thickness 1.5 cm 0.6 - 1.0 / 0.6 - 0.9 cm IVS Systolic Thickness 2.2 cm LVPW Diastolic Thickness 1.6 cm 0.6 - 1.0 / 0.6 - 0.9 cm LVPW Systolic Thickness 2.7 cm LVOT Diameter 2.0 cm LV Ejection Fraction 2D Teich 77.8 % LV Ejection Fraction MOD 2C 72.5 % LV Ejection Fraction 2C AL 76.6 % LA Diameter 4.0 cm LA Width 4.0 cm LA Height 4.8 cm RA Width 4.2 cm RA Height 4.4 cm Aorta at Sinotubular Diameter 3.3 cm DOPPLER AV Peak Velocity 166.0 cm/s LVOT Peak Velocity 78.0 cm/s AV Area Cont Eq vti 1.8 cm squared AV Area Cont Eq pk 1.6 cm squared MV Peak Velocity 149.0 cm/s MV Area PHT 2.1 cm squared Mitral E to A Ratio 0.8 MV E' Velocity 66.0 cm/s Mitral E to MV E' Ratio 13.7 Mitral E to LV E' Lateral Ratio 13.9 Mitral E to LV E' Septal Ratio 13.7 TR Peak Velocity 167.7 cm/s TR Peak Gradient 11.2 mmHg Right Atrial Pressure 3.0 mmHg Pulmonary Artery Systolic Pressu 14.2 mmHg PV Peak Velocity 63.0 cm/s RV Acceleration Time 0.1 s RV Ejection Time 0.3 s RV AcT/ET 0.2 FINDINGS Left Ventricle Normal left ventricular cavity size and systolic function. Increased left ventricular wall thickness. Mild concentric left ventricular hypertrophy. Left ventricular ejection fraction is estimated at 65 %. Grade II diastolic dysfunction, moderately elevated filling pressures. Right Ventricle Normal right ventricular size and systolic function. Right ventricular systolic pressure 21 mmHg. Right Atrium Right atrium not well visualized. Left Atrium Mildly increased left atrial size. Mitral Valve S/p Mitral valve repair (32 mm Physio II ring, complex mitral valve leaflet repair). Moderate mitral annular calcification. Mildly thickened mitral valve. No significant mitral valve stenosis (mean gradient 4 mmHg). Trace mitral valve regurgitation. No paravalvular regurgitation. Aortic Valve s/p Aortic valve replacement with 25 mm Inspiris valve.Aortic valve peak velocity 1.7 m/s, peak gradient 11 mmHg and mean gradient 5 mmHg. Aortic valve area by continued equation of 1.8 cm squared. No significant valvular or perivalvular regurgitation. Tricuspid Valve Structurally normal tricuspid valve. Mild tricuspid valve regurgitation. Pulmonic Valve Pulmonic valve not well visualized. No pulmonary valve stenosis. Trace pulmonary valve regurgitation. Pericardium No pericardial effusion. Aorta Normal-sized inferior vena cava with greater than 50% respiratory variation. CONCLUSIONS 1. This is a technically difficult study. 2. Normal left ventricular cavity size and systolic function. Mild concentric left ventricular hypertrophy. Left ventricular ejection fraction is estimated at 65 %. Grade II diastolic dysfunction, moderately elevated filling pressures. 3. Normal right ventricular size and systolic function. 4. Normal pulmonary artery pressure. 5. S/p Aortic valve replacement with 25 mm Inspiris valve. Aortic valve peak velocity 1.7 m/s, peak gradient 11 mmHg and mean gradient 5 mmHg. Aortic valve area by continued equation of 1.8 cm squared. 6. Mild tricuspid valve regurgitation. 7. When compared to prior echocardiogram dated 07/26/2019, aortic valve has been replaced and mitral valve has been repaired. Latanya Jones MD (Electronically Signed) Final Date: 27 March 2021 18:34 S
== END 2021-03-23 08:40 | disposition home or self-care (01) ==
LOC: US 08:42
PROVIDERS: PCP Family Medicine; Visit Provider Internal Medicine Cardiovascular Disease
DX: Z98.890 Other specified postprocedural states (principal); I25.10 Atherosclerotic heart disease of native coronary artery without angina pectoris; Z95.2 Presence of prosthetic heart valve; I07.1 Rheumatic tricuspid insufficiency
CPT/HCPCS: 93306

== ENCOUNTER 2021-12-06 06:57 | Outpatient (CLI) | payer MEDICARE, OTHER, SELFPAY ==
--- NOTE | 2021-12-06 07:15 | XR_ITS ---
WS: [email or web address] Exam: XR KUB [id number] Date/Time of Exam: 12/06/2021 7:15 AM Reason For Exam: RENAL CALCULUS, LEFT Comparison 03/12/2019. And 03/17/2017. 2 Large calcifications superimpose the left renal silhouette and apparently represent known renal sto sandhya. The largest measures 2.2 cm at greatest dimension and the smaller calcification measures 1.9 cm. No bowel obstruction or free air. No sign of organ enlargement. Nonspecific small pelvic calcificati ons are noted. Stable appearing areas of bony sclerosis in the pelvis noted. Bony changes in the pelv is that may indicate diffuse idiopathic skeletal hyperostosis. XR/XR KUB [id number] IMPRESSION: 1. 2 large calcifications superimpose the left kidney and apparently represent known renal stones. 2. No acute abdominal finding. 3. Stable appearing areas of bony sclerosis in the pelvis. Probable diffuse idi opathic skeletal hyperostosis.
== END 2021-12-06 06:58 | disposition home or self-care (01) ==
LOC: RAD 06:59
PROVIDERS: PCP Family Medicine; Visit Provider Urology
DX: N20.0 Calculus of kidney (principal); N40.1 Benign prostatic hyperplasia with lower urinary tract symptoms; N13.8 Other obstructive and reflux uropathy; Q55.0 Absence and aplasia of testis; N30.80 Other cystitis without hematuria; R33.9 Retention of urine, unspecified; N30.20 Other chronic cystitis without hematuria; E29.1 Testicular hypofunction
CPT/HCPCS: 74018; 81003; 99214

== ENCOUNTER → 2022-06-05 13:58 | Outpatient (BNVA) | payer MEDICARE, OTHER, SELFPAY | PROVIDERS: PCP Family Medicine; Visit Provider Urology | DX: R97.20 Elevated prostate specific antigen [PSA] (principal); R79.89 Other specified abnormal findings of blood chemistry | CPT/HCPCS: 81003; 84153; 84403 ==

== ENCOUNTER → 2022-06-11 07:46 | Outpatient (BNVA) | payer MEDICARE, OTHER, SELFPAY | PROVIDERS: PCP Family Medicine; Visit Provider Urology | DX: N30.20 Other chronic cystitis without hematuria (principal); R79.89 Other specified abnormal findings of blood chemistry; R33.9 Retention of urine, unspecified; E29.1 Testicular hypofunction; N20.0 Calculus of kidney | CPT/HCPCS: 81003; 99213 ==

== ENCOUNTER → 2022-10-16 07:33 | Outpatient (BNVA) | payer MEDICARE, OTHER, SELFPAY | PROVIDERS: PCP Family Medicine; Visit Provider Specialist | DX: G56.03 Carpal tunnel syndrome, bilateral upper limbs (principal); G56.23 Lesion of ulnar nerve, bilateral upper limbs | CPT/HCPCS: 95910; 95912 ==

== ENCOUNTER 2022-11-24 20:50 | Emergency (ER) | payer MEDICARE, OTHER, SELFPAY ==
--- NOTE | 2022-11-24 20:52 | XRR_ITS ---
PROCEDURE INFORMATION: Exam: XR Chest Exam date and time: 11/24/2022 9:45 PM Age: 82 years old Clinical indication: Other: Weakness TECHNIQUE: Imaging protocol: Radiologic exam of the chest. Views: 1 view. COMPARISON: CR XR chest 2V* [id number] 10/31/2022 11:54 AM FINDINGS: Lungs: Persisting left basilar infiltrates without consolidation or effusion. The right lung is clear. Pleural spaces: Unremarkable. No pleural effusion. No pneumothorax. Heart/Mediastinum: Chronic prosthetic cardiac valves. Bones/joints: Chronic right shoulder degenerative changes XR/XR chest 1V portable [id number] IMPRESSION: 1. Persisting left basilar infiltrates. 2. Other chronic findings as described.
--- NOTE | 2022-11-24 20:52 | ECG_ITS ---
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 Measurements Intervals [place] Rate: 92 P: 31 OR: 196 QRS: 89 QRSD: 110 T: 31 QT: 354 QTc: 439 Interpretive Statements SINUS RHYTHM Compared to ECG 07/09/2019 11:39:27 First degree AV block no longer present Incomplete right bundle-branch block no longer present Electronically Signed On 11-25-2022 11:08:11 CDT by Latanya Jones M.D. [id number]
[2022-11-24 21:14] LABS: Basophils % 0.3 %; Eosinophils % 0.3 %; Hematocrit 43.8 % (42.0-52.0); Hemoglobin 14.3 g/dL (11.7-16.6); Lymphocytes # 1.3 10^3/uL (0.8-4.8); Lymphocytes % 9.1 %; Mean Corpuscular HGB Conc 32.6 g/dL (30.0-36.0); Mean Corpuscular Hemoglobin 29.4 pg (28.0-34.0); Mean Corpuscular Volume 89.9 fl (80-94); Mean Platelet Volume 9.5 fL (7.4-10.4); Monocytes # 1.6 10^3/uL (0.2-0.9); Monocytes % 11.2 %; Neutrophils # 11.12 10^3/uL (1.8-7.7); Neutrophils % 78.7 %; Nucleated Red Blood Cells % 0 %; Platelet Count 203 10^3/cmm (130-400); Red Blood Count 4.87 10^6/uL (4.1-5.3); Red Cell Distribution Width 13.2 % (12.1-15.1); White Blood Count 14.1 10^3/uL (4.0-10.0)
[2022-11-24 21:24] LABS: INR 1.14 (0.8-1.2)
[2022-11-24 21:29] VITALS: BP 100/63; PULSE 96; RESP 12; TEMP 36.9; O2SAT 96; BMI 27.0
[2022-11-24 21:30] LABS: Troponin(5th) Baseline 31 ng/L (0-15)
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
[2022-11-24 22:05] LABS: Magnesium 1.5 mg/dL (1.7-2.3)
[2022-11-24] MEDS: sodium chloride 0.9% 1,000 ML 999 ML IV (22:10)
--- NOTE | 2022-11-24 22:19 | PC.NURSE ---
Pt hooked up to continuous bedside cardiac monitoring.
[2022-11-24 22:21] VITALS: BP 109/71; PULSE 95; O2SAT 97
[2022-11-24 22:30] VITALS: BP 115/77; PULSE 97; O2SAT 97
[2022-11-24 22:42] LABS: Glucose Urine UA Norm (Normal); Protein Urine 3+ (Negative); Urine Appearance Cloudy (CLEAR); Urine Color Yellow (Yellow); pH Urine 6 (5-7)
[2022-11-24 22:43] LABS: Add Urine Microscopic? YES; Bilirubin Urine Neg (Negative); Blood Urine 3+ (Negative); Ketones Urine 1+ (Negative); Leukocyte Esterase Urine 2+ (Negative); Nitrate Urine Positive (Negative); Urobilinogen Urine Norm (Negative)
[2022-11-24 22:44] LABS: Bacteria Urine 2+ /hpf; RBC Urine >100 /hpf (0-2); Squamous Epithelial Cell Urine 0-4 /hpf (0-5); WBC Urine TOO NUMEROUS TO CNT /hpf (0-5)
[2022-11-24 22:45] LABS: Alanine Aminotransferase 16 U/L (0-41); Albumin Level 3.9 g/dL (3.5-5.2); Alkaline Phosphatase 57 U/L (40-130); Anion Gap 18.1 (5-19); Aspartate Amino Transferase 17 U/L (0-40); Blood Urea Nitrogen 14 mg/dL (8-23); Carbon Dioxide 27 mmol/L (22-29); Chloride 96 mmol/L (98-107); Globulin 2.3 g/dL (1.3-4.6); Glucose 157 mg/dL (65-115); Lipase 17 U/L (13-60); Osmolality Calculated 288 mOsm/kg (285-295); Potassium 4.1 mmol/L (3.5-5.1); Sodium 137 mmol/L (136-145); Total Bilirubin 1.2 mg/dL (0.15-1.2); Total Protein 6.2 g/dL (6.6-8.7)
[2022-11-24 22:46] LABS: Add Urine Culture? Yes
--- NOTE | 2022-11-24 22:52 | ECG_ITS ---
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 Measurements Intervals [place] Rate: 91 P: 48 [place]: 227 QRS: 79 QRSD: 112 T: 32 QT: 351 QTc: 433 Interpretive Statements SINUS RHYTHM WITH FIRST DEGREE AV BLOCK MODERATE INTRAVENTRICULAR CONDUCTION DELAY [110+ ms QRS DURATION] Compared to ECG 11/24/2022 22:32:20 First degree AV block now present Intraventricular conduction delay now present Electronically Signed On 11-25-2022 11:10:27 CDT by Latanya Jones M.D. [id number]
[2022-11-24] MEDS: cefTRIAXone 1,000 MG in sodium chloride 0.9% (plus) 50 ML 100 MG IV (23:25)
[2022-11-25 00:05] LABS: Troponin 5 2HR 34.64 ng/L (0-15)
[2022-11-25 00:07] LABS: Troponin 5 2HR Delta 3.64 ABS# (0-10)
[2022-11-25 00:30] VITALS: BP 96/70; PULSE 84; RESP 18; O2SAT 96
== END 2022-11-25 00:31 | disposition home or self-care (01) ==
PROVIDERS: Emergency Medicine; Emergency Provider Emergency Medicine; PCP Family Medicine
DX: N30.00 Acute cystitis without hematuria (principal); Z79.82 Long term (current) use of aspirin; I10 Essential (primary) hypertension
CPT/HCPCS: 36415; 71045; 80053; 81001; 83690; 83735; 84484; 85025; 85610; 87077; 87086; 87186; 87493; 93005; 96365; 99285; J0696; J7030

== ENCOUNTER → 2023-01-07 07:58 | Outpatient (BNVA) | payer MEDICARE, OTHER, SELFPAY | PROVIDERS: PCP Family Medicine; Visit Provider Dermatology | DX: L82.1 Other seborrheic keratosis (principal) | CPT/HCPCS: 17000; 17003; 99213 ==

== ENCOUNTER → 2023-11-04 09:44 | Outpatient (BNVA) | payer MEDICARE, OTHER, SELFPAY | PROVIDERS: PCP Family Medicine; Visit Provider Nurse Practitioner Family | DX: I10 Essential (primary) hypertension (principal); I25.10 Atherosclerotic heart disease of native coronary artery without angina pectoris | CPT/HCPCS: 99214 ==

== ENCOUNTER → 2024-01-12 13:08 | Outpatient (BNVA) | payer MEDICARE, OTHER, SELFPAY | PROVIDERS: PCP Family Medicine; Visit Provider Nurse Practitioner Family | DX: D48.5 Neoplasm of uncertain behavior of skin (principal); L57.0 Actinic keratosis; L91.8 Other hypertrophic disorders of the skin; L82.1 Other seborrheic keratosis; D18.01 Hemangioma of skin and subcutaneous tissue; Z85.828 Personal history of other malignant neoplasm of skin | CPT/HCPCS: 11102; 17000; 17110; 99213 ==

== ENCOUNTER → 2024-02-02 08:34 | Outpatient (BNVA) | payer MEDICARE, OTHER, SELFPAY | PROVIDERS: PCP Family Medicine; Visit Provider Dermatology | DX: C44.41 Basal cell carcinoma of skin of scalp and neck (principal); D48.5 Neoplasm of uncertain behavior of skin; L57.0 Actinic keratosis | CPT/HCPCS: 11102; 13121; 17000; 17311 ==

== ENCOUNTER → 2024-02-18 07:58 | Outpatient (BNVA) | payer MEDICARE, OTHER, SELFPAY | PROVIDERS: PCP Family Medicine; Visit Provider Dermatology | DX: C44.319 Basal cell carcinoma of skin of other parts of face (principal) | CPT/HCPCS: 13132; 17311 ==

== ENCOUNTER → 2024-03-08 09:58 | Outpatient (BNVA) | payer MEDICARE, OTHER, SELFPAY | PROVIDERS: PCP Family Medicine; Visit Provider Dermatology | DX: Z48.817 Encounter for surgical aftercare following surgery on the skin and subcutaneous tissue (principal) | CPT/HCPCS: 99212 ==

== ENCOUNTER → 2024-07-14 10:39 | Outpatient (BNVA) | payer MEDICARE, OTHER, SELFPAY | PROVIDERS: PCP Family Medicine; Visit Provider Nurse Practitioner Family | DX: L82.1 Other seborrheic keratosis (principal); D18.01 Hemangioma of skin and subcutaneous tissue; Z08 Encounter for follow-up examination after completed treatment for malignant neoplasm; Z85.828 Personal history of other malignant neoplasm of skin; D48.5 Neoplasm of uncertain behavior of skin; L57.0 Actinic keratosis | CPT/HCPCS: 11102; 17000; 99213 ==

== ENCOUNTER → 2024-08-16 14:18 | Outpatient (BNVA) | payer MEDICARE, OTHER, SELFPAY | PROVIDERS: PCP Family Medicine; Visit Provider Dermatology | DX: D23.39 Other benign neoplasm of skin of other parts of face (principal); L82.1 Other seborrheic keratosis; Z08 Encounter for follow-up examination after completed treatment for malignant neoplasm; Z85.828 Personal history of other malignant neoplasm of skin; C44.519 Basal cell carcinoma of skin of other part of trunk | CPT/HCPCS: 17262; 99213 ==

== ENCOUNTER → 2024-11-03 12:45 | Outpatient (BNVA) | payer MEDICARE, OTHER, SELFPAY | PROVIDERS: PCP Family Medicine; Visit Provider Internal Medicine | DX: I25.10 Atherosclerotic heart disease of native coronary artery without angina pectoris (principal); I10 Essential (primary) hypertension; Z95.2 Presence of prosthetic heart valve; Z98.890 Other specified postprocedural states; E78.2 Mixed hyperlipidemia; Z95.5 Presence of coronary angioplasty implant and graft | CPT/HCPCS: 99214 ==

== ENCOUNTER 2024-12-15 12:35 | Outpatient (CLI) | payer MEDICARE, OTHER, SELFPAY ==
--- NOTE | 2024-12-15 12:45 | USCV_ITS ---
Tomer Donaldson Age: 84 Gender: M : 1940 Exam Date: 12/15/2024 12:50 Ordering Phys: Alfredo Dewitt M.D ([email or web address]) Technologist: [place] [facility] [place]: ao pros BP: 130 / 80 HR: 69 Rhythm: Sinus Technical Quality: Adequate MEASUREMENTS (Male / Female) Normal Values 2D ECHO LV Diastolic Diameter PLAX 4.3 cm 4.2 - 5.9 / 3.9 - 5.3 cm IVS Diastolic Thickness 1.5 cm 0.6 - 1.0 / 0.6 - 0.9 cm IVS Systolic Thickness 2.0 cm LVPW Diastolic Thickness 1.3 cm 0.6 - 1.0 / 0.6 - 0.9 cm LVPW Systolic Thickness 2.0 cm LVOT Diameter 2.0 cm LV Ejection Fraction 2D Teich 63.0 % LV Ejection Fraction MOD 4C 72.2 % LV Ejection Fraction MOD 2C 52.8 % LV Ejection Fraction 2C AL 53.0 % LA Diameter 4.0 cm RA Systolic Volume 4C AL 53.4 ml RA Systolic Volume 4C MOD 51.8 ml Aorta at Sinotubular Diameter 3.6 cm M-MODE LA Ao Ratio MM 1.4 AV Cusp Separation MM 1.9 cm DOPPLER AV Peak Velocity 160.0 cm/s LVOT Peak Velocity 80.0 cm/s AV Area Cont Eq vti 1.9 cm squared AV Area Cont Eq pk 1.6 cm squared MV Peak Velocity 149.0 cm/s MV Area PHT 2.5 cm squared Mitral E to A Ratio 0.8 TV Peak Velocity 112.0 cm/s TR Peak Velocity 114.0 cm/s TR Peak Gradient 5.2 mmHg TV Peak E Velocity 96.0 cm/s PV Peak Velocity 101.0 cm/s FINDINGS Left Ventricle Left ventricle is normal in size. LV systolic function is normal with EF of 60 to 65%. No regional wall motion abnormalities are seen. Moderate left ventricular hypertrophy. Grade 1 diastolic dysfunction Right Ventricle Normal in size and function Right Atrium Normal in size Left Atrium Dilated Mitral Valve Mitral annular calcification and possible mitral valve annuloplasty ring. Trace mitral regurgitation. Aortic Valve Bioprosthetic aortic valve. No significant stenosis or regurgitation. DVI is normal at 0.5 Tricuspid Valve Insufficient TR jet to calculate RVSP Pulmonic Valve Not well visualized Pericardium Normal Aorta Mildly dilated ascending aorta with diameter of 3.56 cm IVC Not well visualized CONCLUSIONS LV systolic function is normal with EF of 60 to 65%. Moderate left ventricle hypertrophy Grade 1 diastolic dysfunction. Left atrial dilatation. Possible mitral valve annuloplasty ring. Trace mitral regurgitation Bioprosthetic aortic valve. DVI is normal Mildly dilated ascending aorta with diameter of 3.56 cm Alfredo Dewitt MD (Electronically Signed) Final Date: 25 December 2024 21:29 S
== END 2024-12-15 12:36 | disposition home or self-care (01) ==
LOC: RAD 12:36
PROVIDERS: PCP Family Medicine; Visit Provider Internal Medicine
DX: R06.02 Shortness of breath (principal); I51.7 Cardiomegaly; R93.1 Abnormal findings on diagnostic imaging of heart and coronary circulation; I34.81 Nonrheumatic mitral (valve) annulus calcification; Z95.2 Presence of prosthetic heart valve; I77.810 Thoracic aortic ectasia
CPT/HCPCS: 93306

== ENCOUNTER → 2025-01-13 10:00 | Outpatient (BNVA) | payer MEDICARE, OTHER, SELFPAY | PROVIDERS: PCP Family Medicine; Visit Provider Nurse Practitioner Family | DX: L30.4 Erythema intertrigo (principal); D23.39 Other benign neoplasm of skin of other parts of face; L82.1 Other seborrheic keratosis; D18.01 Hemangioma of skin and subcutaneous tissue; Z08 Encounter for follow-up examination after completed treatment for malignant neoplasm; Z85.828 Personal history of other malignant neoplasm of skin; T81.89XA Other complications of procedures, not elsewhere classified, initial encounter; X58.XXXA Exposure to other specified factors, initial encounter; D48.5 Neoplasm of uncertain behavior of skin; L57.0 Actinic keratosis | CPT/HCPCS: 11102; 17000; 87070; 87075; 87205; 99214 ==

== ENCOUNTER → 2025-01-26 10:14 | Outpatient (BNVA) | payer MEDICARE, OTHER, SELFPAY | PROVIDERS: PCP Family Medicine; Visit Provider Dermatology | DX: C44.629 Squamous cell carcinoma of skin of left upper limb, including shoulder (principal) | CPT/HCPCS: 11604; 12034 ==

== ENCOUNTER → 2025-02-11 10:51 | Outpatient (BNVA) | payer MEDICARE, OTHER, SELFPAY | PROVIDERS: PCP Family Medicine; Visit Provider Dermatology | DX: C44.629 Squamous cell carcinoma of skin of left upper limb, including shoulder (principal) | CPT/HCPCS: 99213 ==

== ENCOUNTER → 2025-05-02 09:16 | Outpatient (BNVA) | payer MEDICARE, OTHER, SELFPAY | PROVIDERS: PCP Family Medicine; Visit Provider Nurse Practitioner Family | DX: L82.1 Other seborrheic keratosis (principal); D18.01 Hemangioma of skin and subcutaneous tissue; Z08 Encounter for follow-up examination after completed treatment for malignant neoplasm; Z85.828 Personal history of other malignant neoplasm of skin; L57.0 Actinic keratosis | CPT/HCPCS: 17000; 99213 ==